=== PATIENT | female | born 1945 | race Caucasian/White ===

== ENCOUNTER 2023-05-13 09:06 | Inpatient (IN) | payer MEDICARE ==
[2023-05-13] MEDS ORDERED: dilTIAZem 25 MG/5 ML VIAL ONE (11:34)
[2023-05-13] MEDS ORDERED: Atropine Sulfate 0.4 mg/1 ml Vial ONE ×2 (11:43→12:00)
[2023-05-13] MEDS ORDERED: Phenylephrine 40 MG/NS 250 ML 250 ML ONE (11:59)
[2023-05-13] MEDS ORDERED: Phenylephrine 10 MG/ML VIAL ONE (12:00)
[2023-05-13] MEDS ORDERED: Metoprolol Tartrate 5 MG/5 ML VIAL ONE (12:00)
[2023-05-13] MEDS ORDERED: PROPOFOL 200 MG/20 ML VIAL ONE (12:00)
[2023-05-13] MEDS ORDERED: Atropine Sulfate 1 mg/1 ml Vial ONE (12:00)
[2023-05-13] MEDS ORDERED: hydrALAZINE 20 MG/ML VIAL ONE (12:00)
[2023-05-13] MEDS ORDERED: PHENYLEPHRINE-NS 100 MCG/ML 10 ML SYRINGE ONE (12:01)
[2023-05-13] MEDS ORDERED: Ondansetron PF 4 MG/2 ML Vial ONE (12:54)
[2023-05-13] MEDS ORDERED: Acetaminophen 325 MG TAB PO PRN (15:21)
[2023-05-13] MEDS ORDERED: Ondansetron PF 4 MG/2 ML Vial IVP PRN (15:22)
[2023-05-13] MEDS ORDERED: Calcium Carbonate 500 MG ChewTAB PO PRN (15:23)
[2023-05-13] MEDS: Sodium Chloride 0.9% 1,000 ML IV SCH ×2 (15:28→23:04)
[2023-05-13] MEDS ORDERED: DOPamine 400 MG/D5W 250 ML 250 ML IVPB SCH (15:30)
[2023-05-13] MEDS ORDERED: Atropine Sulfate 1 mg/10 ml Syringe ONE (16:39)
[2023-05-13] MEDS ORDERED: DOPamine/D5W 400 mg/250 ml PREMIX ONE (16:39)
[2023-05-14] MEDS: Sodium Chloride 0.9% 1,000 ML IV SCH (07:44)
[2023-05-14 08:25] VITALS: BP 165/68; TEMP 97.8
== END 2023-05-14 09:33 | disposition home or self-care (01) | DRG 312 ==
LOC: CSHSDC 09:06 → CSHIMCU 13:31
PROVIDERS: ADMIT Internal Medicine Cardiovascular Disease; ATTEND Internal Medicine Cardiovascular Disease
PROC: B24BZZ4 Ultrasonography of Heart with Aorta, Transesophageal (ICD-10-PCS; principal; 2023-05-13)
DX: I95.81 Postprocedural hypotension (principal); I47.10 Supraventricular tachycardia, unspecified; I34.0 Nonrheumatic mitral (valve) insufficiency; I11.9 Hypertensive heart disease without heart failure; M10.9 Gout, unspecified; M19.90 Unspecified osteoarthritis, unspecified site; I48.0 Paroxysmal atrial fibrillation; Z79.899 Other long term (current) drug therapy; I49.1 Atrial premature depolarization; I49.3 Ventricular premature depolarization
CPT/HCPCS: 93005; 93010; 93312; 94760; 94762; J0360; J0461; J1265; J2370; J2405; J2704; J7050

== ENCOUNTER 2024-06-11 11:41 | Outpatient (CLI) | payer MEDICARE | END 2024-06-11 11:42 | disposition home or self-care (01) | LOC: CSHMAMMO 11:41 | PROVIDERS: ATTEND Family Medicine | DX: Z12.31 Encounter for screening mammogram for malignant neoplasm of breast (principal) | CPT/HCPCS: 77063; 77067 ==